=== PATIENT | female | born 1995 | race Caucasian/White ===

== ENCOUNTER 2017-01-13 03:24 | Emergency (ER) | payer OTHER ==
--- NOTE | 2017-01-17 15:36 | ER ---
ADMIT: 01/13/2017 RM/LOC: ER [facility] MR#: [id number] [place], [place] [id number] ABDIAS SEGURA Ru [address] [place] [address] Emergency Room Report SEX: F AGE: 21 : 1995 DATE: 01/13/2017 ADDENDUM: A 21-year-old female coming in with several complaints, but mainly she is concerned with stuttering that started all of a sudden, she said and then also vaginal bleeding. She does have abnormal menstrual periods, so this is not anything different. She is not . 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 So, she has dysfunctional bleeding there. 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 I did a CT scan just in case. This was new onset, and it was negative. We are going to give her Restoril 15 mg one p.o. at bedtime for the next 5 days. See if she gets better sleep, see if this does not resolve on its own. If not, she does need to follow up with her doctor. She has evidently been seen in the [facility] by Joanna Rosado, which she can continue to see. CONDITION ON DISCHARGE: Good. Angel Luis Gannon MD/ rob JOB #: [id number] CC: Kranthi Joyce MD, Attending Physician Joanna Rosado, Family Physician
== END 2017-01-13 09:35 | disposition home or self-care (01) ==
LOC: ER 03:24
DX: N93.9 Abnormal uterine and vaginal bleeding, unspecified (principal)